=== PATIENT | female | born 1930 ===

== ENCOUNTER 2018-07-16 16:08 | Emergency (ER) | payer MEDICARE, OTHER ==
[2018-07-16 16:16] VITALS: RESP 16
--- NOTE | 2018-07-16 17:34 | ED PDOC ---
HPI: Trauma/Fall - HPI Time Seen by Provider: 07/16/18 16:36 Chief Complaint (Nursing): Trauma Chief Complaint (Provider): fall injuries History Per: Patient History/Exam Limitations: no limitations Onset/Duration Of Symptoms: Hrs (today) Location Of Injury: Left: Head, Wrist, Anterior: Head Associated Symptoms: LOC (questionable) Additional Complaint(s): Malorie Rebolledo is an 87 year old female, with a past medical history of HTN and asthma, who presents to the emergency department accompanied by family member for evaluation of injury to left side of head and left wrist pain s/p fall onset today. Patient states she slipped and fell in the bathroom, she landed on her left side and tried to break her fall with her left arm. Family member reports a questionable LOC. Patient is not on blood thinners. She denies any chest pain, dizziness, numbness, weakness or other possible injuries. No further medical complaints. PMD: Brando Mckay - Fall Fall:Prior To Injury: Slipped Past Medical History Reviewed: Historical Data, Nursing Documentation, Vital Signs Vital Signs: Last Vital Signs Temp 98.9 F 07/16/18 16:13 Pulse 95 H 07/16/18 16:13 Resp 16 07/16/18 16:13 BP 190/93 H 07/16/18 16:13 Pulse Ox 98 07/16/18 16:13 - Medical History PMH: Asthma, HTN - Surgical History Other surgeries: orthopedic surgeries - Family History Family History: States: Unknown Family Hx - Allergies Allergies/Adverse Reactions: Allergies Allergy/AdvReac Type Severity Reaction Status Date / Time No Known Allergies Allergy Verified 07/16/18 16:12 Review of Systems ROS Statement: Except As Marked, All Systems Reviewed And Found Negative Cardiovascular: Negative for: Chest Pain Musculoskeletal: Positive for: Arm Pain (left wrist) Skin: Positive for: Other (left side of head injuries) Neurological: Negative for: Weakness, Numbness, Dizziness Physical Exam - Reviewed Nursing Documentation Reviewed: Yes Vital Signs Reviewed: Yes - Physical Exam Appears: Positive for: No Acute Distress Head Exam: Positive for: NORMAL INSPECTION, NORMOCEPHALIC. Negative for: ATRAUMATIC (Left temporal hematoma with an abrasion. No laceration) Skin: Positive for: Normal Color, Warm, Dry Eye Exam: Positive for: Normal appearance (Right eye), EOMI (right eye ), PERRL (right eye), Other (Left eye enucleation surgery) ENT: Positive for: Normal ENT Inspection Neck: Positive for: Normal, Painless ROM, Supple Cardiovascular/Chest: Positive for: Regular Rate, Rhythm. Negative for: Murmur Respiratory: Positive for: Normal Breath Sounds. Negative for: Respiratory Dis tress Gastrointestinal/Abdominal: Positive for: Normal Exam, Soft. Negative for: Tenderness, Guarding, Rebound, Other (ecchymosis) Back: Positive for: Normal Inspection. Negative for: L CVA Tenderness, R CVA Tenderness, Vertebral Tenderness Extremity: Positive for: Tenderness (Left wrist), Deformity (left wrist), Swelling (left wrist). Negative for: Normal ROM (Limited ROM of left wrist due to pain and swelling. Full ROM of fingers), Other (tenderness to hip or bilateral legs) Neurologic/Psych: Positive for: Alert, Oriented. Negative for: Motor/Sensory Deficits - ECG O2 Sat by Pulse Oximetry: 98 (RA) Pulse Ox Interpretation: Normal Medical Decision Making Medical Decision Making: Time: 16:36 Initial Impression: Head injury with abrasion of left face and left wrist injury s/p mechanical slip and fall. R/o intracranial bleeding, r/o forearm fracture and dislocation. Initial Plan: --Head w/o contrast [CT] --Wrist, left 3 views [RAD] --Reevaluation 17:[address] FINDINGS: HEMORRHAGE: No intracranial hemorrhage. BRAIN: Mild chronic periventricular white matter ischemic changes seen extending peripherally into the deep and subcortical white matter both cerebral hemispheres. There also appears to be some extension of these changes into the white matter tracts of both basal nuclei. Note that the possibility of a small hyperacute infarct cannot be excluded based on this exam. Moderate generalized volume loss. VENTRICLES: No obstructive hydrocephalus. CALVARIUM: No acute calvarial fractures. There is however a moderately large left-sided periorbital hematoma which is seen in the mid supraorbital and left lateral supraorbital soft tissues. Moderate generalized PARANASAL SINUSES: There is moderate mucosal thickening in the right maxillary sinus. There is also mucosal thickening within multiple ethmoid air cells more so on the right side extending superiorly into the frontal sinus. MASTOID AIR CELLS: Partial opacification left mastoid air complex. OTHER FINDINGS: Phthisis bulbi left globe.. Changes of right-sided cataract surgery. IMPRESSION: No acute intracranial hemorrhage. Moderate chronic white matter ischemic changes with extension into the white matter tracts of both basal nuclei. Moderate generalized volume loss. Left periorbital and left supraorbital-lateral frontotemporal soft tissue hematoma. 20:45 X-ray shows a distal non-displaced radial fracture and ulnar styloid fracture on the left. Patient was placed on a splint and given an arm sling. Splint done by shale processing technician and supervised by provider. At this time patient requires no further medical treatment in the ED and is medically stable for discharge home. Return precautions provided and patient advised to follow up with orthopedic. -- Scribe Attestation: Documented by Jasmeet Milner, acting as a scribe for Eugenia Carranza MD Provider Scribe Attestation: All medical record entries made by the Scribe were at my direction and personally dictated by me. I have reviewed the chart and agree that the record accurately reflects my personal performance of the history, physical exam, medical decision making, and the department course for this patient. I have also personally directed, reviewed, and agree with the discharge instructions and disposition. Procedures - Splinting Location: Left forearm Splint: volar Pre-Proc Neuro Vasc Exam: normal Post-Proc Neuro Vasc Exam: normal Progress: Splint placed by shale processing technician and supervised by provider. Disposition - Clinical Impression Clinical Impression: Distal radius fracture, left, Fracture of ulnar styloid - Disposition Referrals: Anirudh Loredo III, MD [Staff Provider] - Disposition: Routine/Home Disposition Time: 20:45 Condition: GOOD Additional Instructions: MALORIE REBOLLEDO, thank you for letting us take care of you today. Your provider was Eugenia Carranza MD and you were treated for FALL: FACIAL INJURY, LT WRIST INJURY. The emergency medical care you received today was directed at your acute symptoms. If you were prescribed any medication, please fill it and take as directed. It may take several days for your symptoms to resolve. Return to the Emergency Department if your symptoms worsen, do not improve, or if you have any other problems. Please contact your doctor or call one of the physicians/clinics you have been referred to that are listed on the Patient Visit Information form that is included in your discharge packet. Bring any paperwork you were given at discharge with you along with any medications you are taking to your follow up visit. Our treatment cannot replace ongoing medical care by a primary care provider outside of the emergency department. Thank you for allowing the [facility] team to be part of your care today. If you had an X-Ray or CT scan: A Radiologist will review the ED reading if any change in treatment is needed we will contact you. If you had a blood, urine, or wound culture: It will take several days for the results, if any change in treatment is needed we will contact you. If you had an STI test: It will take 48 hours for the results. Please call after 1 week if you have not heard back. Instructions: Forearm Fracture (DC) Forms: [facility] (Armenian) Print Language: PAKISTANI
--- NOTE | 2018-07-16 17:59 | CT ---
Date of service: 07/16/2018 PROCEDURE: CT HEAD WITHOUT CONTRAST. HISTORY: Head injury COMPARISON: None available. TECHNIQUE: Axial computed tomography images were obtained through the head/brain without intravenous contrast. Radiation dose: Total exam DLP = 672.73 mGy-cm. This CT exam was performed using one or more of the following dose reduction techniques: Automated exposure control, adjustment of the mA and/or kV according to patient size, and/or use of iterative reconstruction technique. FINDINGS: HEMORRHAGE: No intracranial hemorrhage. BRAIN: Mild chronic periventricular white matter ischemic changes seen extending peripherally into the deep and subcortical white matter both cerebral hemispheres. There also appears to be some extension of these changes into the white matter tracts of both basal nuclei. Note that the possibility of a small hyperacute infarct cannot be excluded based on this exam. Moderate generalized volume loss. VENTRICLES: No obstructive hydrocephalus. CALVARIUM: No acute calvarial fractures. There is however a moderately large left-sided periorbital hematoma which is seen in the mid supraorbital and left lateral supraorbital soft tissues. Moderate generalized PARANASAL SINUSES: There is moderate mucosal thickening in the right maxillary sinus. There is also mucosal thickening within multiple ethmoid air cells more so on the right side extending superiorly into the frontal sinus. MASTOID AIR CELLS: Partial opacification left mastoid air complex. OTHER FINDINGS: Phthisis bulbi left globe.. Changes of right-sided cataract surgery. IMPRESSION: No acute intracranial hemorrhage. Moderate chronic white matter ischemic changes with extension into the white matter tracts of both basal nuclei. Moderate generalized volume loss. Left periorbital and left supraorbital-lateral frontotemporal soft tissue hematoma.
[2018-07-16 20:25] VITALS: BP 151/82; PULSE 78; TEMP 98.6
[2018-07-16 20:56] VITALS: O2SAT 98
--- NOTE | 2018-07-17 13:05 | RAD ---
Date of service: 07/16/2018 PROCEDURE: Left Wrist Radiographs. HISTORY: left wrist injury pain swelling COMPARISON: None. FINDINGS: BONES: There is a comminuted impacted is slightly dorsally angulated fracture of the distal left radius. There is also a fracture of the distal ulna styloid. Surrounding soft tissue swelling JOINTS: Normal. No dislocation. SOFT TISSUES: As above. OTHER FINDINGS: None. IMPRESSION: There is a comminuted impacted is slightly dorsally angulated fracture of the distal left radius. There is also a fracture of the distal ulna styloid. Surrounding soft tissue swelling
== END 2018-07-16 21:00 | disposition home or self-care (01) ==
LOC: H.ER 16:08
DX: S52.592A Other fractures of lower end of left radius, initial encounter for closed fracture (principal); S00.81XA Abrasion of other part of head, initial encounter; W01.0XXA Fall on same level from slipping, tripping and stumbling without subsequent striking against object, initial encounter; Y92.002 Bathroom of unspecified non-institutional (private) residence as the place of occurrence of the external cause; I10 Essential (primary) hypertension